=== PATIENT | female | born 1925 | race Caucasian/White ===

== ENCOUNTER 2016-06-10 16:45 | Inpatient (IN) | payer MEDICARE, OTHER ==
[~2016-06-10] VITALS: Ht 175.3 cm; Wt 65.4 kg
--- NOTE | ~2016-06-10 | OR ---
PATIENT'S NAME: [facility] AGE: 89 Y [address] ROOM: [place] [address] LOCATION: [facility] [place] ADMIT DATE: 06/10/2016 OR/Procedure Report DISCHARGE DATE: FAMILY PHYSICIAN: Misael Tinsley MD ATTENDING PHYSICIAN: KAYLIN RODRIGUEZ SURGEON: Jesús Ovalle MD CALENDER WIND UP HELPER: None. DATE OF PROCEDURE: 06/11/2016 PREOPERATIVE DIAGNOSIS: Right displaced femoral neck fracture. POSTOPERATIVE DIAGNOSIS: Right displaced femoral neck fracture. PROCEDURES PERFORMED: Right hip hemiarthroplasty. ANESTHESIA: General endotracheal anesthesia. FLUIDS: 2100 mL of crystalloid. ESTIMATED BLOOD LOSS: 150 mL. TOURNIQUET: None. SPECIMENS: None. COMPLICATIONS: None. DISPOSITION: Stable in PACU. COUNT RESULTS: All counts were correct. IMPLANTS: [place] II femoral stem size 7, size 28 zero offset femoral head, and size 50 outer diameter bipolar component. INDICATIONS: Ms. Cevallos is a pleasant 89-year-old female, who underwent the noted procedures above. The risks, benefits, and alternatives of pursuing surgical intervention were discussed with the patient in detail and her daughter who is her power of civil attorney. The patient and the patient's daughter elected to proceed with surgery. Anesthesia was consulted for their perioperative evaluation of the patient. I marked the right lower extremity indicating the correct surgical site. OPERATIVE REPORT IN DETAIL: The patient was taken to the holding area of the PATIENT'S NAME: [facility] AGE: 89 Y [address] ROOM: [place] [address] LOCATION: [facility] [place] ADMIT DATE: 06/10/2016 OR/Procedure Report DISCHARGE DATE: FAMILY PHYSICIAN: Misael Tinsley MD ATTENDING PHYSICIAN: KAYLIN RODRIGUEZ Operative Room. A time-out was performed. General endotracheal anesthesia was administered. The patient then positioned in the left lateral decubitus position with Stulberg positioners, and a Roho was placed in the left axilla. The left lower extremity was then prepped and draped in a sterile fashion. I turned my attention to the right hip. A final time-out was performed. Tranexamic acid was administered, as well as Ancef antibiotic for perioperative prophylaxis. I made a posterior incision to the hip through skin and subcutaneous tissue. A Bovie electrocautery device was used to maintain meticulous hemostasis. I subsequently identified the fascia and sharply incised. I used the Bovie electrocautery device to remove the short external rotators and posterior capsule, and the posterior aspect of the greater trochanter. I identified the proximal femur, which was fractured. I used an oscillating saw to make my femoral neck cut. I subsequently removed it with an osteotome. I confirmed the position of the cut, which was satisfactory. I then used a corkscrew to remove the femoral head from the canal. I used a rongeur to debride any particulate matter in the acetabulum. I then copiously irrigated the wound with normal sterile saline solution via pulsatile lavage. I then exposed the proximal femur using a curette and a canal finder to open up the intramedullary canal. I used a gambling box person to lateralize at the level of the greater trochanter. I then broached sequentially up to a size 7, and found that this was adequate. I put trial components in place and surgically reduced the hip. I took the hip through a range of motion, and measured leg lengths at the posterior aspects of the heel and at the superior aspects of the patellae and found that the leg length was appropriate. I achieved range of motion from zero to approximately 130 degrees of flexion with approximately 60 degrees of internal rotation prior to dislocation. All the trial components were removed. I subsequently placed the final components and then surgically reduced it. The hip again was taken through a range of motion. It was identical with the trial components. I then copiously irrigated the wound with a normal sterile saline solution via pulsatile lavage. I drilled two holes in the posterior aspect of the greater trochanter, and used one #1 Ethibond suture to repair the posterior capsule and short external rotators in the posterior aspect of the greater trochanter. I again took the hip through a range of motion and found it to be stable. WOUND CLOSURE: A layered closure began with #2 Stratafix barbed suture to approximate the fascia, followed by 0 Stratafix suture for the deeper subcutaneous tissue, followed by 2-0 Vicryl suture for the more superficial subcutaneous tissue, and Prineo to approximate the skin. A sterile Mepilex PATIENT'S NAME: KAYLA CEVALLOS [facility] AGE: 89 Y [address] ROOM: [address] [address] LOCATION: [facility] [place] ADMIT DATE: 06/10/2016 OR/Procedure Report DISCHARGE DATE: FAMILY PHYSICIAN: Misael Tinsley MD ATTENDING PHYSICIAN: KAYLIN RODRIGUEZ A dressing was then placed. An abduction pillow was then placed between the patient's legs. She was then placed supine on the operating room table, and transferred onto the hospital bed. CONDITION: She was extubated and then brought to the Recovery Room in stable condition. There were no intraoperative complications noted. IMPRESSION: The patient is status post right hip hemiarthroplasty. PLAN: The patient will be weightbearing as tolerated with hip flexion precautions to 90 degrees. Physical Therapy and Occupational Therapy will be consulted for early ambulation and prevention of deconditioning. She will maintain the abduction pillow while in bed. The patient does have dementia, and is confused at baseline, though she does ambulate independently. I will request that postoperative antibiotics be prescribed as per routine. Deep venous thrombosis prophylaxis will be in the form of Lovenox. The hospitalists continue to manage her medical comorbidities postoperatively. I will continue to follow the patient closely in the postoperative period. MD DENNIS INMAN/melida /[id number] d: 06/11/16 2351 t: 06/12/16 1036, OPERATIVE SUMMARY
--- NOTE | ~2016-06-10 | DS ---
PATIENT'S NAME: KAYLA CEVALLOS [facility] AGE: 89 Y [address] ROOM: [address] [place] [address] LOCATION: [facility] ADMIT DATE: 06/10/2016 Discharge Summary DISCHARGE DATE: 06/16/2016 FAMILY PHYSICIAN: Misael Tinsley MD ATTENDING PHYSICIAN: Magan Rodriguez FAMILY PHYSICIAN: Dr. Misael Tinsley. CONSULTING PHYSICIAN: Dr. Jesús Ovalle, orthopedics. DISCHARGE DIAGNOSES: 1. Right hip femur neck fracture, status post right hip hemiarthroplasty on 06/11/2016. 2. Alzheimer's dementia. 3. Asthma. 4. Hypertension, essential. 5. Hypothyroidism. 6. Atrial fibrillation. 7. Chronic kidney disease stage 3/4. DISCHARGE MEDICATIONS: 1. Tylenol 1000 mg p.o. q.i.d. 2. Tylenol 600 mg p.o. q.2 hours p.r.n. pain. Maximum dose of acetaminophen a day is 3000 mg. 3. Xanax 0.25 mg p.o. t.i.d. at 8:00 a.m., 12:00 p.m., and 6:00 p.m. If refuses oral Xanax, charge nurse may administer p.r.n. alprazolam gel. 4. Amiodarone 100 mg p.o. daily. 5. Coreg 3.125 mg p.o. twice daily, 12:00 p.m. and 8:00 p.m. 6. Colace 100 mg p.o. daily. 7. Cymbalta 60 mg p.o. every evening at 2100 hours. 8. ASA 81 mg through 06/25 while on Lovenox, then change to 325 mg p.o. daily, indication atrial fibrillation. 9. Lovenox 40 mg subcutaneously daily. 10. Levothyroxine 50 mcg p.o. daily before breakfast. 11. Multivitamin 1 tab p.o. daily. 12. Omeprazole 20 mg p.o. daily. 13. MiraLAX 17 g p.o. daily. 14. Fleet enema 133 mL rectally daily p.r.n. constipation. 15. Tramadol 50 mg one or two tablets p.o. q.4 hours p.r.n. pain. 16. Ultram 50 mg p.o. t.i.d. scheduled at 8:00 a.m., 4:00 p.m. and 8:00 p.m. 17. Mylanta 15 to 30 mL p.o. t.i.d. p.r.n. GI upset. 18. Dulcolax suppository 10 mg rectally daily p.r.n. constipation. 19. Calcium carbonate regular strength one or 2 tabs every 4 hours p.r.n. indigestion. 20. Guaifenesin liquid 10 mL p.o. q.i.d. p.r.n. cough. PATIENT'S NAME: KAYLA CEVALLOS [facility] AGE: 89 Y [address] ROOM: [address] [address] LOCATION: [facility] ADMIT DATE: 06/10/2016 Discharge Summary DISCHARGE DATE: 06/16/2016 FAMILY PHYSICIAN: Misael Tinsley MD ATTENDING PHYSICIAN: Magan Rodriguez 21. Lanolin topically p.r.n. dry skin. 22. Milk of magnesia 30 mL p.o. daily p.r.n. constipation. 23. Neomycin ointment p.r.n. skin breaks. 24. Rose Mary protective cream topically p.r.n. irritated areas. 25. Calmoseptine ointment topically t.i.d. to hemorrhoids, 6:00 a.m., 10:00 a.m., 8:00 p.m. 26. Albuterol sulfate one vial INH q.6 h. p.r.n. shortness of breath. 27. Xanax gel 0.5 mg topically t.i.d. p.r.n. if refusing oral Xanax. 28. Eucerin lotion topically p.r.n. dry skin. 29. Anoro Ellipta 62.5-25 mcg INH 1 puff INH q.i.d. 30. Systane balance eyedrops 1 to 2 drops, four times a day p.r.n. dry eye. PROCEDURES: On 06/11/2016, the patient underwent a right hip hemiarthroplasty under general anesthesia by Dr. Jesús Ovalle. HOSPITAL COURSE: Please refer to the admitting H and P dictated by Dr. Rodriguez for more detailed outline on the patient's presentation. The patient was admitted with a diagnosis of right hip fracture. A chest x-ray and EKG were obtained for preoperative clearance. The patient had a supratherapeutic INR of 6.7, therefore vitamin K 5 mg IV was given x1. The INR corrected. The patient did have to have additional dose of 10 mg of vitamin K to get the INR down to 1.3 of which the patient was then satisfactory for OR. The patient also received 2 units of fresh frozen plasma. The patient, throughout her hospitalization, was pleasantly confused given her history of dementia. The patient tolerated the procedure well. The patient postoperative was placed on Lovenox for DVT prophylaxis. There was a long discussion between our physicians and the patient's daughter concerning the use of long-term anticoagulation given her fall history and age. Ultimately, it was decided to hold the Coumadin. The Crisostomo catheter was removed on 06/13/2016. The patient was started on 81 mg of aspirin on 06/13 with the understanding to changes to full dose aspirin of 325 mg daily once the Lovenox had been completed. Ultimately, the patient had arrangements as to be discharged back to the [facility]. Arrangements were made for this to happen on 06/16/2016. On the morning of 06/16/2016, the day of discharge, the patient's vital signs were stable. The patient was resting comfortably in bed. Again, pleasantly confused. The patient had no difficulties with resumption of bowel movements. Care Management helped with the arrangements for the discharge back to the [facility]. The patient can adhere to her regular diet. She is weightbearing as tolerated with hip dislocation precautions. She is to use a pillow x6 weeks postoperatively. She should continue to undergo OT and PT therapies. She needs to follow up with Dr. Ovalle in 2 weeks postop. She will have a Mepilex dressing on until she is seen in followup. The patient may shower over the Mepilex dressing. PATIENT'S NAME: KAYLA CEVALLOS [facility] AGE: 89 Y [address] ROOM: [place] [address] LOCATION: [facility] ADMIT DATE: 06/10/2016 Discharge Summary DISCHARGE DATE: 06/16/2016 FAMILY PHYSICIAN: Misael Tinsley MD ATTENDING PHYSICIAN: Magan Rodriguez The discharge of this patient took greater than 35 minutes including reviewing of medications, arranging for transfer back to [facility], coordinate of care between subspecialties. Thank you for allowing us to help care for Kayla Cevallos. SOFIE HENRIQUEZ PA-C FOR MD TIO DAVIDSONM/modl /[id number] CC: Misael Tinsley MD d: 06/18/16 0234 t: 06/25/16 1815, DISCHARGE SUMMARY
--- NOTE | ~2016-06-10 | HP ---
PATIENT'S NAME: [facility]ART [facility] AGE: 89 Y [address] ROOM: [address] [address] LOCATION: [facility] [place] ADMIT DATE: 06/10/2016 History & Physical DISCHARGE DATE: FAMILY PHYSICIAN: PHYSICIAN, UNKNOWN ATTENDING PHYSICIAN: KAYLIN RODRIGUEZ DATE OF SERVICE: CHIEF COMPLAINT: Fall. HISTORY OF PRESENT ILLNESS: An 89-year-old lady with a past medical history of chronic kidney disease, stage 3 to 4, resident of an assisted living facility, has Alzheimer's dementia as well as atrial fibrillation, on chronic anticoagulation, had a fall about 1 week ago and was brought to the local emergency department after she kept complaining of right knee pain. X-ray of the right knee was taken, and no abnormality was noted, and she was sent back to the living facility. She presented again at the outside facility with the similar complaints, and right hip x-ray was done, which did show right femoral neck fracture, and she was transferred here for further medical care. On my encounter, she is in no acute distress, alert, oriented to only to herself. She denied any headache, any trouble with the eyes, any trouble swallowing, any chest pain, any shortness of breath, abdominal pain, but did endorse having pain in the right thigh as well as right knee. She denied any PND, orthopnea, or leg swelling. I talked over the phone with her daughter, Sarah Way, who is an RN as well as power of securities attorney. She stated that she is not functional at all at the living facility. She is not able to get to the shower by herself and needs assistance all the time. Rest of the history was obtained from the daughter as well as the limited chart available to us at this point. REVIEW OF SYSTEMS: All other systems were reviewed and were negative except what is mentioned in the HPI. PAST MEDICAL HISTORY: 1. Chronic kidney disease, stage 3 to 4. 2. Urinary incontinence. 3. Pressure ulcers. 4. Hypertension. 5. Atrial fibrillation, on amiodarone and rate control with long-term anticoagulation with Coumadin. 6. Dementia, Alzheimer's. 7. Hypothyroidism. PATIENT'S NAME: [facility]ART [facility] AGE: 89 Y [address] ROOM: [address] [address] LOCATION: [facility] [place] ADMIT DATE: 06/10/2016 History & Physical DISCHARGE DATE: FAMILY PHYSICIAN: PHYSICIAN, UNKNOWN ATTENDING PHYSICIAN: KAYLIN RODRIGUEZ 8. Malnutrition. 9. Adult failure to thrive. MEDICATIONS: Medications are being reconciled right now. PAST SURGICAL HISTORY: She had left hip replaced as well as bilateral knee arthroplasties done. That is the only available data we have at this point. ALLERGIES: NO KNOWN DRUG ALLERGIES. SOCIAL HISTORY: Never a smoker. No alcohol or drug abuse. FAMILY HISTORY: Family history is significant for diabetes in patient's mom. PHYSICAL EXAMINATION: VITAL SIGNS: Blood pressure 177/87, respiratory rate 16, pulse 83, temp 97.7. GENERAL: No acute distress. Alert and oriented to herself. HEENT: Head: Atraumatic, normocephalic. Eyes: Nonicteric. No pallor. Oropharynx: Dry mucous membranes. CARDIOVASCULAR: S1 and S2. No murmurs, gallops, or rubs. LUNGS: Clear to auscultation bilaterally. ABDOMEN: Soft, nontender, nondistended. Bowel sounds present. EXTREMITIES: Right lower extremity shortened and externally rotated. No clubbing, cyanosis, or edema. SKIN: No bruises or rashes noted. PSYCH: Flat affect, mood, and speech. LABORATORY AND DIAGNOSTIC DATA: X-ray from the outside facility did show right femoral neck fracture. ASSESSMENT: 1. Right hip fracture. 2. Atrial fibrillation with controlled ventricular rates, on long-term anticoagulation. 3. Chronic kidney disease, stage 3 to 4. 4. Degenerative joint disease. 5. Dementia. 6. Failure to thrive. 7. Severe protein malnutrition. PATIENT'S NAME: KAYLA CEVALLOS [facility] AGE: 89 Y [address] ROOM: [address] [address] LOCATION: [facility] [place] ADMIT DATE: 06/10/2016 History & Physical DISCHARGE DATE: FAMILY PHYSICIAN: PHYSICIAN, UNKNOWN ATTENDING PHYSICIAN: KAYLIN RODRIGUEZ PLAN: We are going to admit this patient. Orthopedic consultation has been obtained. We are going to obtain basic labs including PT, INR, as well as CBC and BMP. Based on the INR, we will give her vitamin K to reverse her anticoagulation. Given the limited history, we are going to obtain EKG as well as chest x-ray as well. Morning team can decide to obtain an echo before the surgery. Her functional status is very limited. She is at moderate risk for this low-risk surgery. We are to continue her home medication including Coreg, amiodarone, and amlodipine. She is going to be n.p.o. midnight. She is DNR/DNI, but that can be reversed during the surgery per conversation with the daughter, who is power of securities attorney. Fall precaution. SCD for DVT prophylaxis. MD SHELDON ARSHAD/melida /[id number] D: [id number] T: [id number] HISTORY & PHYSICAL
--- NOTE | ~2016-06-10 | CON ---
PATIENT'S NAME: KAYLA EISENBERG [facility] AGE: 89 Y [address] ROOM: [place] [address] LOCATION: [facility] ADMIT DATE: 06/10/2016 Consultation DISCHARGE DATE: FAMILY PHYSICIAN: PHYSICIAN, UNKNOWN ATTENDING PHYSICIAN: KAYLIN RODRIGUEZ REFERRING PHYSICIAN: NYA HERNANDEZ MD CHIEF COMPLAINT: Right hip and groin pain. HISTORY OF PRESENT ILLNESS: Ms. Eisenberg is a pleasant 89-year-old female who presents from [place] to [facility] for definitive orthopedic care regarding a right hip fracture. She sustained a fall and plain x-rays were obtained, and she was diagnosed with a right femoral neck fracture. In talking to the patient, the patient appears somewhat confused. She does report that she has right hip and groin pain, but does not know how it happened. I have spoken with the daughter, the daughter notes that her mother sustained a fall and we discussed the problem at hand. The patient's daughter is a registered nurse. Currently, the patient is on bed rest. She reports pain and discomfort with any manipulation of the right lower extremity. Alleviating factors include rest, ice, elevation, and non manipulation of the limb. Currently, the patient denies any constitutional symptoms such as fever, chills, or night sweats. She also denies any dizziness, chest pain, shortness of breath, blurred vision, nausea, vomiting, or diarrhea. REVIEW OF SYSTEMS: A 10-point review of systems is otherwise mentioned above in the HPI. The patient issue is musculoskeletal in nature, and it pertains to the right lower extremity. There is pain, swelling, and discomfort in the right lower extremity. PAST MEDICAL HISTORY: Alzheimer's dementia, asthma, hypertension, constipation, depression, hypothyroidism, atrial fibrillation on chronic anticoagulation, chronic kidney disease, stage 3 or 4, osteoarthritis, severe protein calorie malnutrition, and hyponatremia. PAST SURGICAL HISTORY: Unable to obtain from the patient. By radiographs, there appears to be a history of left cemented total hip arthroplasty. ALLERGIES: NO KNOWN DRUG ALLERGIES. SOCIAL HISTORY: The patient denies any alcohol, tobacco, or illicit drug use. PATIENT'S NAME: KAYLA EISENBERG [facility] AGE: 89 Y [address] ROOM: [place] [address] LOCATION: [facility] ADMIT DATE: 06/10/2016 Consultation DISCHARGE DATE: FAMILY PHYSICIAN: PHYSICIAN, UNKNOWN ATTENDING PHYSICIAN: KAYLIN RODRIGUEZ FAMILY HISTORY: There is a history of hypertension on the maternal and paternal sides of the family. MEDICATIONS: 1. Sodium phosphate. 2. Multivitamin. 3. Calcium carbonate. 4. Tramadol. 5. Acetaminophen. 6. Polyethylene glycol. 7. Amiodarone. 8. Docusate. 9. Carvedilol. 10. Warfarin. 11. Duloxetine. 12. Omeprazole. 13. Levothyroxine. 14. Alprazolam. 15. Bisacodyl. 16. Magnesium hydroxide/ simethicone. 17. Simethicone. 18. Guaifenesin. 19. Xanax. 20. Bacitracin. 21. Dimethicone. 22. Zinc oxide. 23. Lanolin. 24. UltraPure. 25. Menthol. 26. Zinc oxide. 27. Eucerin cream. 28. Albuterol. 29. Umeclidinium bromide. 30. Eye drops. 31. Propylene glycol. PHYSICAL EXAMINATION: GENERAL: The patient awake and alert x2. She is actively conversing with me at the bedside. She is in no acute distress. She is confused at baseline. HEENT: Normocephalic and atraumatic. Extraocular movements are intact. PERRLA. Moist mucous membranes. The oropharyngeal airway is clear. NECK: Supple. Trachea is in the midline. CARDIOVASCULAR: Regular rate and rhythm. PATIENT'S NAME: KAYLA EISENBERG [facility] AGE: 89 Y [address] ROOM: [id number] [place], [place] [address] LOCATION: [facility] ADMIT DATE: 06/10/2016 Consultation DISCHARGE DATE: FAMILY PHYSICIAN: PHYSICIAN, UNKNOWN ATTENDING PHYSICIAN: KAYLIN RODRIGUEZ CHEST: Normal and symmetric. Respirations are observed bilaterally. ABDOMEN: Nontender and nondistended. PELVIS: Stable. MUSCULOSKELETAL: Right lower extremity: Focal examination of the patient's right lower extremity reveals that she is grossly neurologically intact distally. Compartments of the thigh, leg, and foot are soft. The limb is shortened and externally rotated relative to the contralateral limb. There is a positive log roll test. There is pain with manipulation of the extremity. There is palpable dorsalis pedal and posterior tibial pulses. The patient is actively able to dorsiflex and plantar flex her ankle and range her toes. Left lower extremity: Focal examination of the patient's left lower extremity reveals she is grossly neurologically intact distally. Compartments of the thigh, leg, and foot are soft. There is good capillary refill in the toes. There is palpable dorsalis pedal and posterior tibial pulses. The patient really has no pain with passive or active range of motion of the knee, ankle, or foot. Strength is preserved on this limb. There is no gross deformity present. IMAGING: Plain radiographs of the right hip reveal evidence of a displaced right femoral neck fracture. LABORATORY VALUES: A critical value was reported this evening that reveals an INR of 6.7. IMPRESSION: Right displaced femoral neck fracture. PLAN: I had a long discussion with the patient and then subsequently with her daughter over the phone who is a registered nurse. I explained to the mother who has a right displaced femoral neck fracture. I am recommending a right hip hemiarthroplasty for definitive orthopedic fixation. I discussed the risks, benefits, and alternatives pursuing a surgical intervention in detail with the daughter. This was observed by the nurse on-call for the patient. I discussed the risks of anesthesia, infection, bleeding, and injury to neurovascular structures. The patient will be bed rest for now. We will have 2 g of Ancef on hold for the preoperative purposes. The hospitalist currently admitted the patient. We are waiting a medical workup. A critical INR value of 6.7 reveals supratherapeutic anticoagulation. Vitamin K and fresh frozen plasma will be started to try to reverse this problem as soon as possible. Once the patient is medically optimized, INR is less than 1.7 and cleared for the OR, we will plan for surgery as soon as tomorrow. She will be n.p.o. after midnight. PATIENT'S NAME: KAYLA EISENBERG [facility] AGE: 89 Y [address] ROOM: [address] [place] [id number] LOCATION: [facility] ADMIT DATE: 06/10/2016 Consultation DISCHARGE DATE: FAMILY PHYSICIAN: PHYSICIAN, UNKNOWN ATTENDING PHYSICIAN: KAYLIN RODRIGUEZ MD DENNIS INMAN/melida /[id number] d: 06/11/16 0441 t: 06/11/16 0855, CONSULTATION REPORT
[2016-06-10] MEDS ORDERED: FLEET ENEMA133 ML R (17:22)
[2016-06-10] MEDS ORDERED: THERAGRAN-M1 TAB PO (17:22)
[2016-06-10] MEDS ORDERED: TUMS REGULAR ST1 TAB PO (17:23)
[2016-06-10] MEDS ORDERED: ULTRAM50 MG PO ×2 (17:23→17:28)
[2016-06-10] MEDS ORDERED: MIRALAX17 GM PO (17:24)
[2016-06-10] MEDS ORDERED: TYLENOL EXTRA500 MG PO (17:24)
[2016-06-10] MEDS ORDERED: COLACE100 MG PO (17:25)
[2016-06-10] MEDS ORDERED: COREG 3.1253.125 MG PO (17:25)
[2016-06-10] MEDS ORDERED: AMIODARONE HCL200 MG PO (17:25)
[2016-06-10] MEDS ORDERED: COUMADIN ** 9/62 MG PO (17:26)
[2016-06-10] MEDS ORDERED: COUMADIN **IA2.5 MG PO (17:26)
[2016-06-10] MEDS ORDERED: CYMBALTA60 MG PO (17:27)
[2016-06-10] MEDS ORDERED: PRILOSEC20 MG PO (17:27)
[2016-06-10] MEDS ORDERED: LEVOTHROID (SY50 MCG PO (17:28)
[2016-06-10] MEDS ORDERED: DULCOLAX10 MG R (17:29)
[2016-06-10] MEDS ORDERED: XANAX0.25 MG PO (17:29)
[2016-06-10] MEDS ORDERED: MYLANTA (MAG-AL30 ML PO (17:30)
[2016-06-10] MEDS ORDERED: MILK OF MA400 MG/5 M PO (17:30)
[2016-06-10] MEDS ORDERED: ROBITUSSIN100 MG/5 M PO (17:31)
[2016-06-10] MEDS ORDERED: TYLENOL325 MG PO (17:32)
[2016-06-10] MEDS ORDERED: XANAX TOP (17:35)
[2016-06-10] MEDS ORDERED: TRIPLE ANTIBIO1 EACH TOP (17:36)
[2016-06-10] MEDS ORDERED: BAZA PROTECT CR57 GM TOP (17:37)
[2016-06-10] MEDS ORDERED: COLD PACK1 EACH TOP (17:38)
[2016-06-10] MEDS ORDERED: LANSINOH7 GM TOP (17:40)
[2016-06-10] MEDS ORDERED: CALMOSEPTINE OI71 GM TOP (17:43)
[2016-06-10] MEDS ORDERED: HYDROCERIN)(MI236 ML TOP (17:43)
[2016-06-10] MEDS ORDERED: ANORO ELLIPTA1 EACH INH (17:44)
[2016-06-10] MEDS ORDERED: ALBUTEROL2.5 MG/31 INH (17:44)
[2016-06-10] MEDS ORDERED: SYSTANE BALANCE10 ML OPHTH (17:45)
[2016-06-10 19:42] LABS: BASOPHIL % 0.4 %; EOSINOPHIL % 0.2 %; HEMATOCRIT 41.2 % (30.0-46.0); HEMOGLOBIN 12.8 g/dL (10.0-15.0); IMMATURE GRANULOCYTE # 0.1 K/uL (0.0-0.3); IMMATURE GRANULOCYTE % 0.6 %; LYMPHOCYTE % 9.4 %; MCH 31.2 pg (27.0-34.0); MCHC 31.1 gm/dL (32.0-36.5); MCV 100.5 fl (83.0-98.0); MONOCYTE # 1.4 K/uL (0.0-1.0); MONOCYTE % 13.6 %; MPV 9.9 fl (9.4-12.4); NEUTROPHIL # (ANC) 7.7 K/uL (1.8-7.8); NEUTROPHIL % 75.8 %; NRBC % 0 /100WBC (0-0.00); PLATELET COUNT 288 K/uL (150-450); RDW-CV 13.8 % (11.9-14.6); WBC 10.2 K/uL (4.0-11.0)
[2016-06-10 19:55] LABS: ANION GAP 13.7 (10.0-19.0); CALCIUM 9.3 mg/dL (8.5-10.5); CREATININE 1.6 mg/dL (0.5-1.1); POTASSIUM 4.7 mMol/L (3.7-5.1)
[2016-06-10 20:01] LABS: PROTIME 82.3 SECONDS (9.6-11.1)
[2016-06-10 20:07] LABS: INR - (THERAPEUTIC) 6.7 (0.9-1.1)
[2016-06-11 00:31] LABS: BILIRUBIN URINE NEGATIVE (NEGATIVE); BLOOD URINE 250 /UL (NEGATIVE); COLOR URINE YELLOW (YELLOW); GLUCOSE URINE NEGATIVE (NEGATIVE); KETONE URINE 15 mg/dL (NEGATIVE); LEUKOCYTES URINE 100 /UL (NEGATIVE); NITRITE URINE NEGATIVE (NEGATIVE); PROTEIN URINE 30 mg/dL (NEGATIVE); SPEC GRAVITY URINE 1.025 (1.003-1.035); TURBIDITY URINE 1+ (CLEAR); UROBILINOGEN URINE NORMAL (NORMAL)
[2016-06-11 00:47] LABS: AMORPHOUS URINE 2+ (NEGATIVE); BACTERIA URINE NEGATIVE (NEGATIVE); CRYSTALS URINE CALCIUM OXALATE (NEGATIVE); EPITHELIAL URINE 0-2 #/HPF (NEGATIVE)
[2016-06-11 02:12] LABS: BASOPHIL % 0.3 %; EOSINOPHIL % 0.2 %; HEMATOCRIT 38.8 % (30.0-46.0); HEMOGLOBIN 12.2 g/dL (10.0-15.0); IMMATURE GRANULOCYTE # 0.1 K/uL (0.0-0.3); IMMATURE GRANULOCYTE % 0.5 %; LYMPHOCYTE # 1.1 K/uL (0.8-4.0); MCH 31.5 pg (27.0-34.0); MCHC 31.4 gm/dL (32.0-36.5); MCV 100.3 fl (83.0-98.0); MONOCYTE # 1.3 K/uL (0.0-1.0); MONOCYTE % 13.3 %; MPV 9.7 fl (9.4-12.4); NEUTROPHIL # (ANC) 7.3 K/uL (1.8-7.8); NEUTROPHIL % 74.7 %; NRBC % 0 /100WBC (0-0.00); PLATELET COUNT 274 K/uL (150-450); RBC 3.87 M/uL (3.00-5.00); RDW-CV 13.5 % (11.9-14.6); WBC 9.8 K/uL (4.0-11.0)
[2016-06-11 02:21] LABS: ANION GAP 13.6 (10.0-19.0); CALCIUM 9.6 mg/dL (8.5-10.5); CREATININE 1.4 mg/dL (0.5-1.1); POTASSIUM 4.6 mMol/L (3.7-5.1)
[2016-06-11 02:26] LABS: INR - (THERAPEUTIC) 2.1 (0.9-1.1); PROTIME 23.1 SECONDS (9.6-11.1)
[2016-06-11 06:38] LABS: INR - (THERAPEUTIC) 1.3 (0.9-1.1)
[2016-06-11 10:16] LABS: BILIRUBIN URINE NEGATIVE (NEGATIVE); BLOOD URINE 250 /UL (NEGATIVE); COLOR URINE YELLOW (YELLOW); GLUCOSE URINE NEGATIVE (NEGATIVE); KETONE URINE 50 mg/dL (NEGATIVE); LEUKOCYTES URINE 500 /UL (NEGATIVE); NITRITE URINE NEGATIVE (NEGATIVE); PROTEIN URINE 30 mg/dL (NEGATIVE); SPEC GRAVITY URINE 1.025 (1.003-1.035); TURBIDITY URINE CLEAR (CLEAR); UROBILINOGEN URINE NORMAL (NORMAL)
[2016-06-11 10:32] LABS: RBC URINE FULL FIELD #/HPF (NEGATIVE); WBC URINE 20-50 #/HPF (NEGATIVE)
[2016-06-11 10:33] LABS: BACTERIA URINE MANY (NEGATIVE); MUCUS URINE 1+ (NEGATIVE)
[2016-06-12 05:24] LABS: HEMATOCRIT 34.5 % (30.0-46.0); HEMOGLOBIN 10.5 g/dL (10.0-15.0)
[2016-06-13 05:10] LABS: INR - (THERAPEUTIC) 1.2 (0.9-1.1); PROTIME 12.9 SECONDS (9.6-11.1)
[2016-06-13 05:11] LABS: ALBUMIN 2.3 gm/dL (3.5-5.0); ANION GAP 10.2 (10.0-19.0); CALCIUM 8.9 mg/dL (8.5-10.5); CREATININE 1.2 mg/dL (0.5-1.1); POTASSIUM 4.2 mMol/L (3.7-5.1)
[2016-06-13 05:15] LABS: PHOSPHORUS 1.9 mg/dL (2.5-4.9)
== END 2016-06-16 13:20 | disposition disaster alternative care site (69) | DRG 469 ==
LOC: GMSU 16:48
PROVIDERS: Family Medicine; Internal Medicine; Orthopaedic Surgery Adult Reconstructive Orthopaedic Surgery; ADMIT Internal Medicine
PROC: 30233L1 Transfusion of Nonautologous Fresh Plasma into Peripheral Vein, Percutaneous Approach (ICD-10-PCS; principal; 2016-06-11)
PROC: 0SRR0JZ Replacement of Right Hip Joint, Femoral Surface with Synthetic Substitute, Open Approach (ICD-10-PCS; principal; 2016-06-11)
PROC: 30233K1 Transfusion of Nonautologous Frozen Plasma into Peripheral Vein, Percutaneous Approach (ICD-10-PCS; principal; 2016-06-11)
DX: S72.001A Fracture of unspecified part of neck of right femur, initial encounter for closed fracture (principal); E43 Unspecified severe protein-calorie malnutrition; N18.4 Chronic kidney disease, stage 4 (severe); I48.0 Paroxysmal atrial fibrillation; G30.9 Alzheimer's disease, unspecified; F02.80 Dementia in other diseases classified elsewhere, unspecified severity, without behavioral disturbance, psychotic disturbance, mood disturbance, and anxiety; E03.9 Hypothyroidism, unspecified; J45.909 Unspecified asthma, uncomplicated; I12.9 Hypertensive chronic kidney disease with stage 1 through stage 4 chronic kidney disease, or unspecified chronic kidney disease; M19.90 Unspecified osteoarthritis, unspecified site; W19.XXXA Unspecified fall, initial encounter; Z79.01 Long term (current) use of anticoagulants; Z96.653 Presence of artificial knee joint, bilateral; Z96.642 Presence of left artificial hip joint; Z66 Do not resuscitate
CPT/HCPCS: C1776; J0690; J1650; J1940; J2001; J7030; J7050; J7060; J7120; P9017

== ENCOUNTER → 2016-06-16 | Outpatient (CLI) | payer MEDICARE, OTHER ==
[~2016-06-16] MED LIST: ALBUTEROL2.5 MG/31 INH; AMIODARONE HCL200 MG PO; ANORO ELLIPTA1 EACH INH; BAZA PROTECT CR57 GM TOP; CALMOSEPTINE OI71 GM TOP; COLACE100 MG PO; COLD PACK1 EACH TOP; COREG 3.1253.125 MG PO; COUMADIN ** 9/62 MG PO; COUMADIN **IA2.5 MG PO; CYMBALTA60 MG PO; DULCOLAX10 MG R; FLEET ENEMA133 ML R; HYDROCERIN)(MI236 ML TOP; LANSINOH7 GM TOP; LEVOTHROID (SY50 MCG PO; MILK OF MA400 MG/5 M PO; MIRALAX17 GM PO; MYLANTA (MAG-AL30 ML PO; PRILOSEC20 MG PO; ROBITUSSIN100 MG/5 M PO; SYSTANE BALANCE10 ML OPHTH; THERAGRAN-M1 TAB PO; TRIPLE ANTIBIO1 EACH TOP; TUMS REGULAR ST1 TAB PO; TYLENOL EXTRA500 MG PO; TYLENOL325 MG PO; ULTRAM50 MG PO; XANAX TOP; XANAX0.25 MG PO
== END | disposition disaster alternative care site (69) ==
LOC: GAMB 13:30
DX: M25.551 Pain in right hip (principal); G30.9 Alzheimer's disease, unspecified; F02.80 Dementia in other diseases classified elsewhere, unspecified severity, without behavioral disturbance, psychotic disturbance, mood disturbance, and anxiety; J45.909 Unspecified asthma, uncomplicated; F32.9 Major depressive disorder, single episode, unspecified; E03.9 Hypothyroidism, unspecified; N18.3 Chronic kidney disease, stage 3 (moderate); Z79.899 Other long term (current) drug therapy
CPT/HCPCS: A0422; A0425; A0428